=== PATIENT | female | born 1950 | race Caucasian/White ===

== ENCOUNTER → 2022-11-24 13:44 | Outpatient (CLI) | payer MEDICARE, SELFPAY ==
--- NOTE | ~2022-11-24 | XR_ITS ---
EXAMINATION: XR chest 2V Exam Date/Time: 11/24/2022 13:52 CDT HISTORY: Postviral cough Comparison: None available. RESULT: Lines, tubes, and devices: Cholecystectomy clips. Lungs and pleura: Senescent change, calcified right lung granulomas, otherwise clear. Cardiomediastinal silhouette: Arch calcification. Descending aortic tortuosity. Calcified right juan r nodes. Other: No acute osseous or upper abdominal finding. IMPRESSION: No acute cardiopulmonary process. Reviewed, dictated and finalized at location K.
== END ==
PROVIDERS: PCP Physician Assistant; Visit Provider Physician Assistant
DX: R05.3 Chronic cough (principal)
CPT/HCPCS: 71046